=== PATIENT | male | born 2005 | race Caucasian/White ===

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

== ENCOUNTER 2025-07-26 02:56 | Emergency (ER) | payer OTHER, SELFPAY ==
[2025-07-26 02:59] VITALS: BP 140/90; PULSE 85; RESP 20; TEMP 36.5; O2SAT 97; BMI 33.3
--- OUTSIDE RECORDS SUMMARY | 2025-07-26 03:00 | XMS_ITS | Clinical Summary ---
Author Organization [facility] Address [address] [place] [address] Care Team Providers Care Clerk Television Production Name Role Phone Pcp, No Primary Care Provider Unavailabl e Allergies No known active allergies Medications FLUoxetine (PROZAC) 10 mg capsuleIndicati ons:Generalized anxiety disorder Take 1 Capsule (10 mg) by mouth once daily. If no side effects in the first 7 days, ok to increase to 2 pills per day 30 Capsule 1 07/19/2024 Active Active Problems Problem Noted Date Diagnosed Date High cholesterol 12/10/2022 Generalized anxiety disorder 09/10/2021 ADHD 09/07/2021 Resolved Problems Problem Noted Date Diagnosed Date Resolved Date Cannabis dependence 09/07/2021 07/19/20 24 Immunizations Immunization Administration Dates Next Due HPV 9 (Gardasil [...] is your housing situation today? 1 05/21/2024 Utilities Answer Date Recorded Do you have trouble paying f or utilities (for example, heat, electricity, water, phone)? 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 Gender Identity Not on file Sexual Orientation Not on file Obstetrics History Last Filed Vital Signs Vital Sign Reading Time Taken Comments Blood Pressure 133/84 07/19/2024 2:41 PM CDT Pulse 80 07/19/2024 2:41 PM CDT Temperature 36.6 C (97.8 F) 09/10/2021 12:00 PM AUTOMOTIVE ARTIST Respiratory Rate 16 09/10/2021 12:0 0 PM AUTOMOTIVE ARTIST Oxygen Saturation 98% 07/19/2024 2:41 PM [...] age 15-65 2020 HPV series for age 9-45 (2 - Male 3-dose series) 07/16/2022 06/18/2022 Hepatitis C screening for ag e 18-79 2023 Hepatitis B series for 19+ ( 1 of 3 - 19+ 3-dose series) 2024 Influenza Vaccine (#1) 2025 BMI (ht and wt on same day) for age 18+ 07/19/2025 07/19/2024 Depression screening for age 12+ 07/19/2025 07/19/20 24 Tetanus booster 09/26/2031 09/26/2021 RSV vaccine for adults or (1 - 1-dose 75+ series) 2080 Meningococcal series for age 11-21 Completed 2021 Pneumococcal series for age 6-49 Aged Out No longer eligible based on patient's age to complete this topic Insurance MEDICAID Advance Directives * Full Code (Latest Code Status on File) Date Activated Date Inactivated Comments 09/06/2021 4:52 PM 09/10/2021 7:31 PM Question Answer Comments Code Status Discussion: Not Discussed Care Teams Clerk Television Production Relationship Specialty Start Date End Date Pcp, No . PCP - General 08/05/21
[2025-07-26] MEDS: ONDANSETRON ODT 4 MG TAB 8 MG PO (03:18)
--- NOTE | 2025-07-26 03:18 | ED.GENADULT ---
HPI - General Adult General Chief complaint: Nausea/Vomiting Stated complaint: vomiting, nausea Time Seen by Provider: 07/26/25 03:03 Source: patient Mode of arrival: ambulatory Limitations: no limitations History of Present Illness HPI narrative: 20-year-old male presents to the emergency department for 90 minutes of vomiting, 2 episodes only, no hematemesis. No fever. No trauma or injury. Reports that he ate a [employer] sandwich earlier tonight and also some fried chicken fingers at a outdoor haunted hay ride event. His friends did not eat the same foods and are feeling well. He lets me know multiple times to my interview that he needs a work note. H no diarrhea. is friends have come in from out of town and he does not think he will be able to work at 6:00 a.m. this morning because of his vomiting. There is no abdominal pain. No dysuria. No prior history of abdominal surgeries. He did not try any interventions to try and feel better. No chronic abdominal conditions. No pertinent travel. Reports benign past medical history no long-term health problems no allergies no prescription meds. ROS is notable for the GI symptoms only, otherwise denies times 12 systems. Related Data Previous Rx's ?Medication ?Instructions ?Recorded ondansetron 4 mg disintegrating 4 mg PO Q8H PRN nausea and 07/26/25 tablet vomiting #7 tabs Allergies Allergy/AdvReac Type Severity Reaction Status Date / Time No Known Drug Allergies Allergy Verified 07/26/25 03:02 [facility] Social History Smoking Status: Never smoker Do you use any of these nicotine containing products: None How often do you have a drink containing alcohol: never AUDIT-C Alcohol total score: 0 Non-prescribed substance use: denies use Exam Const: Vital Signs, click to edit/add: Vital Signs - 24 hr 07/26/25 02:59 Temperature 97.7 F Pulse Rate [Pulse Oximeter] 85 Respiratory Rate 20 Blood Pressure [Ri ght Upper Arm] 140/90 H Pulse Oximetry 97 Oxygen Delivery Me thod Room Air Documenting provider has reviewed patient's vital signs: yes Common normals: no apparent distress General appearance: cooperative and comfortable Other: Injected eyes HENMT: Common normals: normocephalic, moist oral mucous membranes and oropharynx normal Head and scalp: normocephalic Face and sinus: normal facial exam Mouth: oral and palatal mucosa normal Eye: Common normals: EOMs intact bilaterally Other: Sclera but not conjunctiva are injected with no exudate Resp: Common normals: normal respiratory effort, no use of accessory muscles and clear to auscultation bilaterally Effort & inspection: able to speak in complete sentences Auscultation: clear to auscultation bilaterally Cardio: Common normals: regular rate, regular rhythm, S1 normal heart sound, S2 normal heart sound and no murmurs Rate: regular rate Rhythm: regular rhythm Heart sounds: S1 normal and S2 normal GI: Common normals: Normal to inspection, nondistended, normoactive bowel sounds present, soft to palpation, non-tender, no hepatosplenomegaly and no masses Palpation: soft and no hepatosplenomegaly Psych: Common normals: speech normal Appearance: grossly normal Speech: normal speech Attention/concentration: attention grossly intact Memory/cognition: memory grossly intact Insight: fair Judgement: fair Skin: Common normals: no rashes or lesions noted General skin exam: no rashes or lesions noted Course Course ED Course: 20-year-old male with a couple of hours of vomiting and nausea, likely viral versus mild food borne illness. There are no features of fever, abdominal guarding, hematemesis that would suggest more dangerous pathology. He does not have pain to suggest pancreatitis. No signs of colitis, bleeding ulcer, aortic pathology, right upper quadrant pain that would suggest gallbladder disease or any lower abdominal pathology. Will administer 8 mg of p.o. Zofran x1. Prescription provided for a few more doses should this be needed. Patient will be off of work today only and then is cleared to return to work provided symptoms improve as expected. Following up an ultrasound of symptoms do not improve in 48 hours. Vital Signs Vital signs: Initial Vital Signs Temperature 97.7 F 07/26/25 02:59 Temperature Source Temporal Artery Scan 07/26/25 02:59 Pulse Rate 85 07/26/25 02:59 Pulse Rhythm Regular 07/26/25 02:59 Pulse Strength 3+ Normal 07/26/25 02:59 Respiratory Rate 20 07/26/25 02:59 Blood Pressure 140/90 H 07/26/25 02:59 Blood Pressure Mean 106 H 07/26/25 02:59 Blood Pressure Position Sitting 07/26/25 02:59 Pulse Oximetry 97 07/26/25 02:59 Oxygen Delivery Method Room Air 07/26/25 02:59 Vital Signs Temperature 97.7 F 07/26/25 02:59 Pulse Rate 85 07/26/25 02:59 Respiratory Rate 20 07/26/25 02:59 Blood Pressure 140/90 H 07/26/25 02:59 Pulse Oximetry 97 07/26/25 02:59 Oxygen Delivery Method Room Air 07/26/25 02:59 Temperature 97.7 F 07/26/25 02:59 Pulse Rate 85 07/26/25 02:59 Respiratory Rate 20 07/26/25 02:59 Blood Pressure 140/90 H 07/26/25 02:59 Pulse Oximetry 97 07/26/25 02:59 Oxygen Delivery Method Room Air 07/26/25 02:59 Discharge Plan Discharge Clinical Impression: Gastroenteritis Patient Disposition: Home, Self-Care Condition: Stable Instructions: Gastroenteritis (DC) Additional Instructions: As we discussed, your vomiting is much more likely from a viral illness than food-borne illness based on what you have described that you have eaten. You were given a dose of ondansetron, also known as Zofran here in the emergency room. This will reduce her nausea and vomiting. Home from work today, may return tomorrow without restrictions. Wash your hands frequently, drink lots of water. Return to the emergency room if you have persistent bloody stools, persistent bloody vomiting, high fever over 100.4 for more than 12 hours or other severe worrisome symptoms. Avoid alcohol and all illicit substances including marijuana for the next 3 days. We would typically encouraged someone to be seen in urgent care or to wait until clinic opens for these types of symptoms overnight. Activity Level: Activity as Tolerated Discharge Diet: Regular Prescriptions: New ondansetron 4 mg tablet,disintegrating 4 mg PO Q8H PRN (Reason: nausea and vomiting) Qty: 7 0RF Follow Up/Referrals: Provider,Not a Local [Primary Care Provider, Family Practice] Stand Alone [facility]: [facility] Info Inst[facility]
== END 2025-07-26 03:28 | disposition home or self-care (01) ==
LOC: ED 03:24
PROVIDERS: Emergency Provider Family Medicine
DX: K52.9 Noninfective gastroenteritis and colitis, unspecified (principal)
CPT/HCPCS: 99283; A9270

== ENCOUNTER 2025-08-04 18:59 | Outpatient (CLI) | payer OTHER, SELFPAY | END 2025-08-04 19:00 | disposition home or self-care (01) | LOC: AMB 08-10 16:23 | PROVIDERS: Visit Provider Emergency Medicine Emergency Medical Services | DX: R45.851 Suicidal ideations (principal) | CPT/HCPCS: A0425; A0429 ==

== ENCOUNTER 2025-08-04 19:45 | Emergency (ER) | payer OTHER, SELFPAY ==
--- OUTSIDE RECORDS SUMMARY | 2025-08-04 19:46 | XMS_ITS | Clinical Summary ---
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 Advance Directives * Full Code (Latest Code Status on File) Date Activated Date Inactivated Comments 09/06/2021 4:52 PM 09/10/2021 7:31 PM Question Answer Comments Code Status Discussion: Not Discussed Care Teams Supervisor Rod Placing Relationship Specialty Start Date End Date Pcp, No . PCP - General 08/05/21
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
[2025-08-04 20:14] VITALS: BP 163/100; PULSE 74; RESP 20; TEMP 36.7; O2SAT 98; BMI 32.2
[2025-08-04 20:43] LABS: Hematocrit* 46.3 % (37.0-53.0); Hemoglobin* 15.8 gm/dL (13.5-17.5); Immature Granulocytes Abs Auto 0.05 K/uL (0.00-0.30); Immature Granulocytes Pct Auto 0.5 %; Lymphocytes Absolute Auto 1.00 K/uL (0.90-2.90); Mean Corpuscular HGB Conc 34 gm/dL (32-36); Mean Corpuscular Hemoglobin 29 pg (26-34); Mean Corpuscular Volume 86 fL (80-100); RDW Coefficient of Variation % 12.4 % (11.5-15.5); Red Blood Count* 5.39 m/uL (4.30-5.90); Slide Review Reflex No; White Blood Count* 10.30 K/uL (4.50-11.00)
[2025-08-04 20:51] LABS: Albumin* 4.8 g/dL (3.3-5.0); Chloride* 104 mmol/L (96-114); Potassium* 4.1 mmol/L (3.6-5.1); Sodium* 141 mmol/L (135-149)
[2025-08-04 20:53] LABS: Alanine Aminotransferase* 38 U/L (4-50); Anion Gap 12 mEq/L (7-15); Aspartate Amino Transferase* 34 U/L (12-35); Blood Urea Nitrogen* 13 mg/dL (5-24); Carbon Dioxide* 25 mmol/L (20-32); Creatinine* 0.9 mg/dL (0.5-1.5); Est. Creatinine Clearance* 126.67; Estimated Glomerular Filt Rate 125 ml/min
[2025-08-04 20:54] LABS: Alkaline Phosphatase* 102 U/L (40-150); Bilirubin Total* 0.9 mg/dL (0.1-1.5); Calcium* 9.7 mg/dL (8.4-10.6); Glucose* 109 mg/dL (60-115); Total Protein* 8.3 g/dL (6.0-8.3)
[2025-08-04 20:56] LABS: Acetaminophen* < 10.0 ug/mL (10.0-30.0); Ethanol* < 0.01 % (0.01-0.03); Salicylate* < 1.0 mg/dL (1.0-10)
== END 2025-08-04 22:11 ==
LOC: ED 21:59
PROVIDERS: Emergency Provider Student in an Organized Health Care Education/Training Program
DX: R45.851 Suicidal ideations (principal); R46.89 Other symptoms and signs involving appearance and behavior; Z65.3 Problems related to other legal circumstances
CPT/HCPCS: 36415; 80053; 80143; 80179; 80306; 82077; 85025; 99283; 99284